=== PATIENT | female | born 1960 | race Two or more races ===

== ENCOUNTER 2021-02-03 11:42 | Inpatient (IN) | payer OTHER ==
[~2021-02-03] VITALS: Ht 165.1 cm; Wt 67.1 kg
[~2021-02-03 11:42] MED LIST: AVALIDE 150-12.1 TA1 PO; SYNTHROID88 MCG PO
== END 2021-02-09 17:48 | disposition home or self-care (01) | DRG 392 ==
LOC: ER 11:42 → SEC-K 20:51 → MEDJ 20:51
PROVIDERS: ADMIT Internal Medicine; ATTEND Internal Medicine
PROC: BW2110Z Computerized Tomography (CT Scan) of Abdomen and Pelvis using Low Osmolar Contrast, Unenhanced and Enhanced (ICD-10-PCS; principal; 2021-02-03)
DX: K57.32 Diverticulitis of large intestine without perforation or abscess without bleeding (principal); I10 Essential (primary) hypertension; E03.8 Other specified hypothyroidism; Z20.822 Contact with and (suspected) exposure to COVID-19

== ENCOUNTER 2022-12-30 14:26 | Emergency (ER) | payer OTHER ==
[~2022-12-30] VITALS: Ht 165.1 cm; Wt 65.8 kg
[2022-12-30] MEDS ORDERED: LOSARTAN-HCTZ1 EAC2 (14:41)
[2022-12-31] MEDS ORDERED: CIPRO500 MG PO (06:55)
[2022-12-31] MEDS ORDERED: KETO10TA2 PO (06:55)
[2022-12-31] MEDS ORDERED: INTESTINEX680 M2 PO (06:55)
[2022-12-31] MEDS ORDERED: MIRALAX510 GM PO (06:55)
== END 2022-12-31 07:11 ==
LOC: ER 14:26
DX: R10.30 Lower abdominal pain, unspecified (principal); K59.00 Constipation, unspecified; Q63.2 Ectopic kidney; I10 Essential (primary) hypertension; Z88.8 Allergy status to other drugs, medicaments and biological substances